=== PATIENT | male | born 1940 | race Caucasian/White ===

== ENCOUNTER → 2019-10-29 | Outpatient (CLI) | payer MEDICARE, OTHER ==
--- NOTE | 2019-10-29 16:32 | RAD ---
PA and lateral chest. HISTORY: Productive cough, chest congestion PA and lateral views of the chest were compared with a study from August 2014. There is a granuloma in the right apex. Lungs are free of infiltrates. Heart is normal in size. There is no effusion. IMPRESSION: 1. No acute infiltrates, no acute chest disease. Electronically signed by: Murphy Stewart MD (10/29/2019 4:29 PM) [facility]
== END | disposition home or self-care (01) ==
LOC: PMG 10:09
PROVIDERS: ATTEND Physician Assistant Medical
DX: J84.10 Pulmonary fibrosis, unspecified (principal)
CPT/HCPCS: 71046

== ENCOUNTER → 2020-02-07 | Outpatient (CLI) | payer MEDICARE, OTHER ==
--- NOTE | 2020-02-07 10:12 | RAD ---
CHEST PA LATERAL History: Cough, congestion Comparison: October 29, 2019 Findings: 2 AP and single lateral views of the chest are submitted. There is some increased hazy airspace opacity of the medial right lung base although preserved definition of the right heart border and right hemidiaphragm. There is no dependent pleural fluid or pneumothorax. There is again likely degree of emphysema. Cardiac silhouette is stable. There is atherosclerotic calcification near the aortic arch. Impression: 1. There is some increased hazy opacity of the medial right lung base, possible mild infiltrate. There is suspected emphysema. Electronically signed by: Tristan Perry MD (02/07/2020 10:09 AM) [id number]
== END | disposition home or self-care (01) ==
LOC: PMG 09:43
PROVIDERS: ATTEND Physician Assistant
DX: R09.89 Other specified symptoms and signs involving the circulatory and respiratory systems (principal); I70.0 Atherosclerosis of aorta
CPT/HCPCS: 71046

== ENCOUNTER 2020-10-12 11:41 | Emergency (ER) | payer MEDICARE, OTHER ==
[~2020-10-12] VITALS: Ht 188 cm; Wt 117.5 kg
--- NOTE | 2020-10-12 12:19 | PHYS DOC ---
Past History Past Medical History: Hypertension Smoking: Less than 1pk/day Alcohol Use: Rarely Drug Use: None General Adult EDM: Chief Complaint: MECHANICAL FALL HPI: HPI: Patient is a 80-year-old male presents for evaluation following a mechanical fall. Patient had mechanical fall 2 days ago where he struck his head and right side of the ribs outside. Patient did not have loss of consciousness and states his headache and facial pain is improving. Patient denies any nausea vomiting. Patient describes moderate severe right rib pain is worse with palpation and deep breaths. Patient denies any shortness of breath or cough. Pain is nonradiating and mostly located in the right lower posterior ribs Review of Systems: Review of Systems: Constitutional: Denies fever or chills Eyes: Denies change in visual acuity HENT: Denies nasal congestion or sore throat Respiratory: Denies cough or shortness of breath Cardiovascular: Complains of right-sided chest wall pain but no edema GI: Denies abdominal pain, nausea, vomiting, bloody stools or diarrhea : Denies dysuria Musculoskeletal: Denies back pain or joint pain Integument: Denies rash Neurologic: Complains of headache but no focal weakness or sensory changes Endocrine: Denies polyuria or polydipsia Lymphatic: Denies swollen glands Psychiatric: Denies depression or anxiety Allergies: Allergies: Allergies Coded Allergies Type Severity Reaction Last Updated Verified No Known Drug Allergies 10/12/20 No Physical Exam: PE: Constitutional: Well developed, well nourished, no acute distress, non-toxic appearance. [] HENT: No hemotympanum, right sided periorbital ecchymosis and swelling oropharynx moist, no oral exudates, nose normal. [] Eyes: PERRLA, EOMI, conjunctiva normal, no discharge. [] Neck: Normal range of motion, no tenderness, supple, no stridor. [] No meningeal signs Cardiovascular:Heart rate regular rhythm, no murmur [] Lungs & Thorax: Bilateral breath sounds clear, tender to palpate right chest wall Abdomen: Bowel sounds normal, soft, no tenderness, no masses, no pulsatile masses. [] Skin: Warm, dry, no erythema, no rash. [] Abrasion to the right periorbital region with periorbital ecchymosis on the right Back: No tenderness, no CVA tenderness. [] Extremities: No tenderness, no cyanosis, no clubbing, ROM intact, no edema. [] Neurologic: Alert and oriented X 3, normal motor function, normal sensory function, no focal deficits noted. [] Psychologic: Affect normal, judgement normal, mood normal. [] Current Patient Data: Vital Signs: Vital Signs Date Time Temp Pulse Resp B/P (MAP) Pulse Ox O2 Delivery O2 Flow Rate FiO2 10/12/20 11:55 97.7 72 20 168/94 (118) 97 Room Air EKG: EKG: [] Radiology/Procedures: Radiology/Procedures: [][address] [id number] IMAGING REPORT Signed PATIENT: EMILY THOMPSON ACCOUNT: [id number] : 1940 LOCATION: ER AGE: 80 SEX: M EXAM STATUS: REG ER ORD. PHYSICIAN: RAVIN TATE MD REASON: fall, head injury PROCEDURE: CT HEAD AND MAXILLOFACIAL WO CT scan of the head without contrast 10/12/2020 Clinical History: Fall with head injury. Technique: Unenhanced, contiguous, 5 mm axial sections were obtained through the head. One or more of the following individualized dose reduction techniques were utilized for this study: 1. Automated exposure control. 2. Adjustment of the mA and/or kV according to patient size. 3. Use of iterative reconstruction technique. Findings: There is generalized parenchymal atrophy. No acute parenchymal abnormality is seen. No extra-axial fluid collection is noted. No skull fracture is seen. Impression: No acute intracranial abnormality is seen. CT scan of the facial bones without contrast 10/12/2020 Clinical history: Fall with facial injury. Technique: Unenhanced, contiguous, 0.625 mm axial sections were obtained through the facial bones and orbits. 3 mm reconstructed sagittal, axial and coronal images were obtained. One or more of the following individualized dose reduction techniques were utilized for this study: 1. Automated exposure control. 2. Adjustment of the mA and/or kV according to patient size. 3. Use of iterative reconstruction technique. Findings: No facial bone fracture is seen. Both orbits are intact. The patient is edentulous. Mild to moderate mucosal thickening is seen scattered throughout the paranasal sinuses. No air-fluid level is seen. There is a minimal right mastoid effusion. Soft tissue swelling is seen involving the preseptal soft tissues of the right orbit. Impression: No facial bone or orbital fracture is seen. Electronically signed by: Yossi Fulton MD (10/12/2020 1:04 PM) [id number] [place] [id number] IMAGING REPORT Signed PATIENT: EMILY THOMPSON ACCOUNT: [id number] : 1940 LOCATION: ER AGE: 80 SEX: M EXAM STATUS: REG ER ORD. PHYSICIAN: RAVIN TATE MD REASON: fall, right rib pain PROCEDURE: RIBS RIGHT AND PA CHEST PA chest radiograph to include a right rib series 10/12/2020 CLINICAL HISTORY: Fall with right rib pain. Two PA digital radiographs of the chest were obtained. 2 AP and 4 oblique digital radiographs of the right ribs were obtained. Comparison study is dated 02/07/2020. The cardiac silhouette is normal in size. Atherosclerotic calcification thoracic aorta is seen. The thoracic aorta is mildly tortuous. Emphysematous changes are seen involving both lungs. Pleural thickening and scarring is seen, unchanged. No acute pulmonary infiltrate is noted. No pneumothorax or pleural effusion is seen. There is diffuse osteopenia the visualized bony structures. Degenerative changes are seen involving the thoracic spine and both shoulders. The osseous structures are grossly intact. No acute right-sided rib fracture is seen. IMPRESSION: No acute right-sided rib fracture is seen. Electronically signed by: Yossi Fulton MD (10/12/2020 12:56 PM) [id number] DICTATED AND SIGNED BY: YOSSI FULTON MD DATE: 10/12/20 1251 CC: RAVIN TATE MD; SHENG SWEENEY ~MTH0 0 Heart Score: Risk Factors: Risk Factors: DM, Current or recent (<one month) smoker, HTN, HLP, family history of CAD, obesity. Risk Scores: Score 0 - 3: 2.5% MACE over next 6 weeks - Discharge Home Score 4 - 6: 20.3% MACE over next 6 weeks - Admit for Clinical Observation Score 7 - 10: 72.7% MACE over next 6 weeks - Early Invasive Strategies Course & Med Decision Making: Course & Med Decision Making Pertinent Labs and Imaging studies reviewed. (See chart for details) [] 80-year-old male presents with a mechanical fall 2 days ago. Patient had a head injury and he is over 70 years old therefore given a head CT which is negative. CT of the face is negative for fractures as well. Patient has right rib pain and fortunately his x-rays were negative for fracture. Patient will be instructed on ISS and be given pain medicine. Return precautions given. [place] Disclaimer: Melonie Disclaimer: This electronic medical record was generated, in whole or in part, using a voice recognition dictation system. Departure Departure: Impression: Primary Impression: Rib contusion Additional Impressions: Head injury Facial contusion Disposition: 01 DC HOME SELF CARE/HOMELESS Condition: STABLE Referrals: SHENG SWEENEY (PCP) 2-3 days ago Patient Instructions: Head Injury, Adult, Rib Contusion Additional Instructions: EMERGENCY DEPARTMENT GENERAL DISCHARGE INSTRUCTIONS THANK YOU for coming to [facility] Emergency Department (ED) today and trusting us with your care. We trust that you had a positive experience in our Emergency Department. If you wish to speak to the department Management you can contact the emergency department at YOUR FOLLOW UP INSTRUCTIONS ARE FOLLOWS: Do you have a private doctor? If you do not have a private doctor, please ask for a resource list of physicians or clinics that may be able to assist you with follow up care. The Emergency Physician has interpreted your x-rays. The X-ray specialist will also review them. If there is a change in the findings you will be notified in 48 hours when at all possible. A lab test or lab culture may have been done, your results will be reviewed and you will be notified if you need a change in treatment. ADDITIONAL INSTRUCTIONS AND INFORMATION Your care today has been supervised by a physician who is specially trained in emergency care. Many problems require more than one evaluation for a complete diagnosis and treatment. We recommend that you schedule your follow up appointment as recommended to ensure complete treatment of your illness or injury. If you are unable to obtain follow up care and continue to have a problem, or if your condition worsens we recommend that you return to the ED. We are not able to safely determine your condition over the phone nor are we able to give sound medical advice over the phone. For these safety reasons, if you call for medical advice we will ask you to come to the ED for further evaluation If you have any questions regarding these discharge instructions please call the ED at SAFETY INFORMATION In the interest of safety, wellness, and injury prevention; we encourage you to wear your seatbelt, if you smoke; quit smoking, and we encourage your family to use protective helmet for bicycling and other sporting events that present an increased risk for head injury. IF YOUR SYMPTOMS WORSEN OR NEW SYMPTOMS DEVELOP, OR YOU HAVE CONCERNS ABOUT YOUR CONDITION; OR IF YOUR CONDITION WORSENS WHILE YOU ARE WAITING FOR YOUR FOLLOW UP APPOINTMENT; EITHER CONTACT YOUR PRIMARY CARE DOCTOR, THE PHYSICIAN WHOSE NAME AND NUMBER YOU WERE GIVEN, OR RETURN TO THE ED IMMEDIATELY. Scripts Ondansetron Hcl (ZOFRAN) 4 Mg Tablet 1 TAB PO PRN Q6-8HRS for nausea, #12 TAB Prov: RAVIN TATE MD 10/12/20 Hydrocodone Bit/Acetaminophen (NORCO 5-325 TABLET) 1 Each Tablet 1 TAB PO PRN Q6HRS PRN for PAIN, #15 TAB 0 Refills Prov: RAVIN TATE MD 10/12/20 RAVIN TATE MD Oct 12, 2020 12:19
--- NOTE | 2020-10-12 12:58 | RAD ---
PA chest radiograph to include a right rib series 10/12/2020 CLINICAL HISTORY: Fall with right rib pain. Two PA digital radiographs of the chest were obtained. 2 AP and 4 oblique digital radiographs of the right ribs were obtained. Comparison study is dated 02/07/2020. The cardiac silhouette is normal in size. Atherosclerotic calcification thoracic aorta is seen. The t horacic aorta is mildly tortuous. Emphysematous changes are seen involving both lungs. Pleural thicke susannah and scarring is seen, unchanged. No acute pulmonary infiltrate is noted. No pneumothorax or pleu ral effusion is seen. There is diffuse osteopenia the visualized bony structures. Degenerative changes are seen involving t he thoracic spine and both shoulders. The osseous structures are grossly intact. No acute right-sided rib fracture is seen. IMPRESSION: No acute right-sided rib fracture is seen. Electronically signed by: Yossi Fulton MD (10/12/2020 12:56 PM) [id number]
--- NOTE | 2020-10-12 13:07 | RAD ---
CT scan of the head without contrast 10/12/2020 Clinical History: Fall with head injury. Technique: Unenhanced, contiguous, 5 mm axial sections were obtained through the head. One or more of the following individualized dose reduction techniques were utilized for this study: 1. Automated exposure control. 2. Adjustment of the mA and/or kV according to patient size. 3. Use of iterative reconstruction technique. Findings: There is generalized parenchymal atrophy. No acute parenchymal abnormality is seen. No extr a-axial fluid collection is noted. No skull fracture is seen. Impression: No acute intracranial abnormality is seen. CT scan of the facial bones without contrast 10/12/2020 Clinical history: Fall with facial injury. Technique: Unenhanced, contiguous, 0.625 mm axial sections were obtained through the facial bones and orbits. 3 mm reconstructed sagittal, axial and coronal images were obtained. One or more of the following individualized dose reduction techniques were utilized for this study: 1. Automated exposure control. 2. Adjustment of the mA and/or kV according to patient size. 3. Use of iterative reconstruction technique. Findings: No facial bone fracture is seen. Both orbits are intact. The patient is edentulous. Mild to moderate mucosal thickening is seen scattered throughout the paranasal sinuses. No air-fluid level i s seen. There is a minimal right mastoid effusion. Soft tissue swelling is seen involving the presept al soft tissues of the right orbit. Impression: No facial bone or orbital fracture is seen. Electronically signed by: Yossi Fulton MD (10/12/2020 1:04 PM) [id number]
[2020-10-12] MEDS ORDERED: HYDROcodone/APAP 7.5/325MG 1 TAB TABLET PO ONE (13:30)
[2020-10-12] MEDS ORDERED: ONDANSETRON ODT 4 MG TAB.RAPDIS PO ONE (13:30)
[2020-10-12] MEDS ORDERED: HYDR-3165 PO (13:30)
[2020-10-12] MEDS ORDERED: ONDA4TAB7 PO (13:30)
[2020-10-12 14:05] VITALS: BP 171/100
== END 2020-10-12 14:09 | disposition home or self-care (01) ==
LOC: ER 11:41
DX: S20.211A Contusion of right front wall of thorax, initial encounter (principal); S00.83XA Contusion of other part of head, initial encounter; R07.89 Other chest pain; R60.0 Localized edema; I10 Essential (primary) hypertension; F17.200 Nicotine dependence, unspecified, uncomplicated; W18.39XA Other fall on same level, initial encounter; Y93.89 Activity, other specified; Y92.89 Other specified places as the place of occurrence of the external cause; Y99.8 Other external cause status
CPT/HCPCS: 70450; 70486; 71101; 99285; G0238; Q0162